=== PATIENT | male | born 1950 | race Caucasian/White ===

== ENCOUNTER 2017-12-09 06:03 | Outpatient (CLI) | payer MEDICAID ==
[~2017-12-09] VITALS: Ht 180.3 cm; Wt 84.1 kg
[2017-12-09] VITALS (9 sets, daily range): BP systolic 145–165; BP diastolic 72–82; Ht 180.3 cm; Wt 84.1 kg
--- NOTE | ~2017-12-09 | HEMODYNAMI ---
PATIENT:ALO DICKEY MEDICAL RECORD: [id number] : 50 LOCATION:D[id number] ADMISSION DATE: 12/09/17 Generatedon:12/09/201710:53 Patient name: ALO DICKEY Patient #: [id number] SSN: : 1 1950 Date of study: 12/09/2017 Page: Of Hemodynamic Procedure Report Patient Data Patient Demographics Procedure consent was obtained First Name: ALO Gender: Male Last Name: KELI : 1950 Middle Initial: M Age: 67 year(s) Patient #: [id number] Race: Unknown Additional ID: [id number] Contact details [address]: [address] [place] [address] State: [place] City: [place] Zip code: [address] Admission Admission Data Admission Date: 12/09/2017 Admission Time: 6:03 Procedure Procedure Types Cath Procedure Peripheral Cath Diagnostic Procedure Miscellaneous Procedure Description Procedure Date Procedure Date: 12/09/2017 Procedure Start Time: 8:45 Procedure Staff Name Function Florentino Shah RT Monitor Archana Shepard RT Scrub Araceli Antonio RN Nurse Zheng Gonzalez MD Performing Physician Procedure Data Cath Procedure Fluoroscopy Diagnostic fluoroscopy Total fluoroscopy Time: time: 26.6 min 26.6 min Diagnostic fluoroscopy Total fluoroscopy dose: dose: 1808 mGy 1808 mGy Contrast Material Contrast Material Type Amount (ml) Isovue 300 120 Entry Location Entry Primary Successful Side Size Upsize Upsize Entry Closure Succes sful Closure Location (Fr) 1 (Fr) 2 (Fr) Remarks Device Remarks Femoral Right 5 Fr vein Diagnostic catheters Device Type Used For End Catheter Placement Angiodynamics SOS OMNI 2 Procedure NON B 5FR 65CM catheter ([id number]) Procedure Medications Medication Administration Route Dosage Versed I.V. 1 mg Fentanyl I.V. 50 mcg Versed I.V. 1 mg Fentanyl I.V. 50 mcg Versed I.V. 1 mg Fentanyl I.V. 50 mcg Hemodynamics Rest Heart Rate: 107 (bpm) Snapshots Pre Cath Intra NCS Post Cath Vital Signs Time Heart Resp SPO2 etCO2 NIBP (mmHg) Rhythm Pain Sedation Rate (ipm) (%) (mmHg) Status Level (bpm) 8:29:28 107 3 96 0 Measuring NSR 0 (11) 10(A) , No pain 8:30:52 109 19 97 0 Time NSR 0 (11) 10(A) Exceeded , No pain 8:35:17 105 5 98 25.7 174/103(131) NSR 0 (11) 10(A) , No pain 8:39:43 102 14 98 25.7 167/96(133) NSR 0 (11) 10(A) , No pain 8:44:09 105 7 99 26.4 162/94(123) NSR 0 (11) 10(A) , No pain 8:48:33 104 6 99 24.2 164/97(125) NSR 0 (11) 10(A) , No pain 8:52:51 102 12 98 26.4 160/94(109) NSR 0 (11) 10(A) , No pain 8:57:09 104 15 97 24.9 143/90(115) NSR 0 (11) 10(A) , No pain 9:01:25 100 12 98 28.7 158/96(121) NSR 0 (11) 10(A) , No pain 9:05:40 95 13 96 20 138/88(113) NSR 0 (11) 10(A) , No pain 9:09:51 97 11 97 22 138/88(107) NSR 0 (11) 10(A) , No pain 9:14:10 94 13 99 27 140/80(113) NSR 0 (11) 10(A) , No pain 9:18:19 92 12 99 27.2 126/79(99) NSR 0 (11) 10(A) , No pain 9:22:31 92 13 99 27.2 119/69(91) NSR 0 (11) 10(A) , No pain 9:26:41 90 12 99 25.7 137/83(105) NSR 0 (11) 10(A) , No pain 9:30:55 91 12 99 23.4 141/84(105) NSR 0 (11) 10(A) , No pain 9:35:13 91 14 100 14 143/80(102) NSR 0 (11) 10(A) , No pain 9:39:23 92 13 99 18 138/83(109) NSR 0 (11) 10(A) , No pain 9:43:35 91 15 100 20 143/89(112) NSR 0 (11) 10(A) , No pain 9:47:49 96 13 100 22 145/89(108) NSR 0 (11) 10(A) , No pain 9:52:03 96 13 99 22 139/86(109) NSR 0 (11) 10(A) , No pain 9:56:15 93 14 99 24 115/72(89) NSR 0 (11) 10(A) , No pain 10:00:27 95 14 99 25 127/70(92) NSR 0 (11) 10(A) , No pain 10:04:37 94 14 99 25.7 118/72(87) NSR 0 (11) 10(A) , No pain 10:08:49 93 14 99 28 125/75(89) NSR 0 (11) 10(A) , No pain 10:13:05 94 13 99 28.8 124/71(97) NSR 0 (11) 10(A) , No pain 10:17:17 92 14 99 29.5 125/78(93) NSR 0 (11) 10(A) , No pain 10:21:31 93 14 99 31 123/78(91) NSR 0 (11) 10(A) , No pain 10:25:40 93 13 99 31 128/73(97) NSR 0 (11) 10(A) , No pain 10:29:48 94 14 96 31 118/73(96) NSR 0 (11) 10(A) , No pain 10:33:56 95 14 97 28.7 114/74(87) NSR 0 (11) 10(A) , No pain 10:38:04 98 24 100 11.3 136/83(112) NSR 0 (11) 10(A) , No pain 10:43:03 100 9 Measuring NSR 0 (11) 10(A) , No pain 10:43:09 100 9 150/96(126) NSR 0 (11) 10(A) , No pain 10:47:27 97 0 164/94(112) NSR 0 (11) 10(A) , No pain 10:51:47 96 0 166/99(123) NSR 0 (11) 10(A) , No pain Medications Time Medication Route Dose Verified Delivered Reason Notes Effectivenes s by by 8:47:21 Versed I.V. 1 mg Zheng Araceli for Paco Gonzalez RN sedation 8:47:32 Fentanyl I.V. 50 Zheng Araceli for mcg PawelaPaco RN sedation 8:49:54 Versed I.V. 1 mg Zheng Araceli for Burda, Paco WADDELL sedation 8:50:02 Fentanyl I.V. 50 Zheng Araceli for mcg Pawela, Paco WADDELL sedation 9:00:29 Versed I.V. 1 mg Zheng Araceli for BurdPaco thacker RN sedation 9:00:38 Fentanyl I.V. 50 Zheng Araceli for mcg PawelaPaco RN sedation Procedure Log Time Note 8:10:26 Florentino Shah RT (R) (CV) sent for patient. Start room use. 8:10:40 Time tracking: Regular hours 8:10:44 Plan of Care:Hemodynamics will remain stable., Cardiac rhythm will remain stable., Comfort level will be maintained., Respiratory function will remain adequate., Patient/ family verbilizes understanding of procedure., Procedure tolerated without complication., Recovers from procedure without complications.. 8:10:51 Patient received from Outpatients to IR Alert and oriented. Tansferred to table in Supine position. 8:10:52 Correct patient and procedure confirmed by team. 8:10:54 Signed procedure consent form obtained from patient. 8:10:55 ECG and BP/O2 sat monitors applied to patient. 8:10:56 Full Disclosure recording started 8:10:57 - 8:11:00 H&P Date Dictated: 12/09/2017 Within 30 days and on chart.. 8:11:01 Pre-procedure instructions explained to patient. 8:11:01 Pre-op teaching completed and patient verbalized understanding. 8:11:03 Family in waiting room. 8:11:06 Patient NPO since Midnight. 8:11:11 Use device set IR Diagnostic 8:11:13 ACIST Syringe (01268) opened to sterile field. 8:11:13 ACIST Hand Control (87244) opened to sterile field. 8:11:14 ACIST Manifold (62727) opened to sterile field. 8:11:14 Bag Decanter (2002S) opened to sterile field. 8:11:14 Sterile Angiographic Pack opened to sterile field. 8:11:23 Is the patient allergic to Iodine/contrast media? Yes. 8:11:28 Is patient on blood thinner?No 8:11:30 Was the patient premedicated? Yes 8:11:31 Patient diabetic? No. 8:11:32 - 8:11:33 ----Pre-sedation anethsthesia assessment.---- 8:11:35 Previous problem with sedation/anesthesia? No ? 8:11:37 Snore? Yes 8:11:38 Sleep apnea? No 8:11:40 Deviated septum? No 8:11:41 Opens mouth fully? Yes 8:11:44 Sticks out tongue? Yes 8:11:46 Airway obstruction? No ? 8:11:52 Dentures? Yes in tight 8:11:59 Patient pain scale 0/10 no pain. 8:27:39 Vital chart was started 8:27:40 Baseline sample Acquired. 8:42:36 Sharps counted by scrub and verified by R.N. 8:42:36 Alarms reviewed by R. N. 8:42:44 Right groin area was prepped with chlora-prep and draped in sterile fashion 8:42:50 Right neck area was prepped with chlora-prep and draped in sterile fashion 8:42:59 IV patent on arrival in right forearm with 0.9% NaCl at [facility]. 8:43:58 Physician arrived 8:43:59 Physician arrived 8:43:59 --------ALL STOP TIME OUT------ 8:44:00 Final Timeout: patient, procedure, and site verified with staff and physician. All members of the team are in agreement. 8:44:03 Right neck site verified by team. 8:44:07 Right groin site verified by team. 8:44:13 Sedation plan: IV Moderate Sedation Medication:Versed, Fentanyl 8:45:14 Procedure started. 8:45:47 Local anesthetic to right femoral vein with Lidocaine 1% by Zheng Gonzalez MD.INITIAL ACCESS ONLY 8:47:21 Versed 1 mg I.V. was administered by Araceli Antonio RN; for sedation; 8:47:32 Fentanyl 50 mcg I.V. was administered by Araceli Antonio RN; for sedation ; 8:49:49 SHEATH 5FR [place] (QET726) opened to sterile field. 8:49:50 DOC .035 wire (Z85513) opened to sterile field. 8:49:51 Micropuncture VSI 4FR kit opened to sterile field. 8:49:51 TUBING Contrast Injection High Pressure (GIA007V) opened to sterile field. 8:49:54 Versed 1 mg I.V. was administered by Araceli Antonio RN; for sedation; 8:50:02 Fentanyl 50 mcg I.V. was administered by Araceli Antonio RN; for sedation ; 8:52:15 A 5 Fr sheath was inserted into the Right Femoral vein 8:53:46 GLIDE CATHETER 5FR COBRA 65cm (CG502) opened to sterile field. 8:55:25 TORQUE DEVICE PLASTIC .038 ( TD01) opened to sterile field. 8:55:25 GLIDE WIRE ANGLE 260cm (LC0187) opened to sterile field. 8:57:59 GLIDE CATHETER 5FR [place]O 2 100cm (CG511) opened to sterile field. 9:00:29 Versed 1 mg I.V. was administered by Araceli Antonio RN; for sedation; 9:00:38 Fentanyl 50 mcg I.V. was administered by Araceli Antonio RN; for sedation ; 9:00:56 A Angiodynamics SOS OMNI 2 NON B 5FR 65CM catheter ([id number]) was advanced over the wire and used for Procedure. 9:08:02 GLIDE CATHETER 5FR ANGLED 65cm (CG507) opened to sterile field. 9:11:01 HERE FOR TIVA 9:11:23 ARMSTRONG 180cm wire (I76404) opened to sterile field. 9:14:06 BENTSON 145cm wire (Z21913) opened to sterile field. 9:19:53 St Gerardo 9FR sheath opened to sterile field. 9:19:56 St Gerardo 10FR 23CM sheath opened to sterile field. 9:24:17 AMPLATZ Super stiff 180cm wire ([id number]) opened to sterile field. 10:17:36 12 MM AMPLATZER PLUG LOT#[id number] DEPLOYED 10:18:58 GLIDE CATHETER 5FR ANGLED 65cm (CG507) opened to sterile field. 10:25:52 Procedure ended.(Physican Out) 10:26:04 Fluoroscopy time 26.60 minutes. 10:26:09 Fluoroscopy dose: 1808 mGy 10:26:09 Flurop Dose total: 1808 10:26:12 Sharps counted by scrub and verified by R.N. 10:26:19 Insertion/operative site no bleeding no hematoma. 10:26:24 Post-op/insertion site Right Femoral vein dressed using a 4 x 4 and Tegaderm. 10:26:39 Post right femoral vein:stable 10:26:41 Post Procedure Pulses reassessed and unchanged 10:26:44 Post procedure instruction explained to patient.Patient verbalizes understanding. 10:26:46 Patient needs reinforcement of post procedure teaching. 10:26:57 Procedure and supply charges have been captured, reviewed, submitted an d are correct. 10:30:44 Contrast amount:Isovue 300 120ml. 10:52:57 Report given to Med/Surg. 10:53:01 Patient transfered to Med/Surg with Bed. 10:53:28 Vital chart was stopped Device Usage Item Name Manufacture Quantity Catalog Hospital Part Current Minim al Lot# / Number Charge Number Stock Stock Serial# Code ACIST Syringe Acist Medical 1 96230 435755 853477 120437 20 (23260) TalkBin ACIST Hand [employer]ist Medical 1 61853 834343 559645 071621 5 Control Systems Inc (33972) ACIST Acist Medical 1 73888 831744 767518 223084 5 Manifold Systems Inc (65658) Bag Decanter Microtek 1 2001S 928848 76529 632300 5 (2001S) Medical Inc. Sterile Cardinal 1 [id number] 290972 180798 5 Angiographic Health Pack SHEATH 5FR Terumo 1 GFH548 916172 405679 591985 40 [place] (LRA138) DOC .035 wire [facility] 1 Z32447 300180 405610 5 1724517 (T98561) Micropuncture VSI VASCULAR 1 7266V 951851 246092 5 VSI 4FR kit SOLUTIONS TUBING [facility] 1 [id number] 857167 460567 694192 5 Contrast Injection High Pressure (ZJA010S) GLIDE Terumo 1 CG502 738947 770647 5 CATHETER 5FR COBRA 65cm (CG502) TORQUE DEVICE [place] 1 TD01 540957 303632 129152 5 PLASTIC .038 Scientific ( TD01) GLIDE WIRE Terumo 1 US6818 097571 593826 747244 5 ANGLE 260cm (GL1043) GLIDE Terumo 1 CG511 350612 851178 5 CATHETER 5FR PIZ[place]O 2 100cm (CG511) Angiodynamics Angiodynamics 1 [id number] 280322 74767 710346 5 SOS OMNI 2 NON B 5FR 65CM catheter (80278967) GLIDE Terumo 2 CG507 335357 158769 5 CATHETER 5FR ANGLED 65cm (CG507) ARMSTRONG 180cm [place] [facility] 1 T91009 218362 544071 5 3691980 wire (D03187) BENTSON 145cm [employer] [facility] 1 B34194 895376 398293 5 9439416 wire (T41536) [facility] Gerardo 9FR [facility] 1 765242 354043 695001 [id number] Ger[facility] [address] [facility] 1 214530 875360 831058 5 23CM sheath AMPLATZ Super [place] 1 [id number] 073217 710267 5 [id number] stiff 180cm Scientific wire ([id number]) Signature Audit [place] Stage Time Signature Unsigned Intra-Procedure 12/09/2017 Florentino 10:53:25 AM [place] RT (R) (CV) Signatures Monitor : Florentino Signature : [place] RT Date : Time : [facility] [address] [facility] [place] [address]
[~2017-12-09 06:03] MED LIST: MULTIPLE VITAMI1 TA1 PO
[2017-12-09] MEDS ORDERED: PREDNISONE10 MG PO (07:11)
[2017-12-09] MEDS ORDERED: BANOPHEN25 MG PO (07:12)
[2017-12-09 07:17] LABS: HEMATOCRIT 32.1 % (42.0-54.0); HEMOGLOBIN 10.2 g/dL (13.5-17.5); MCHC 31.8 g/dL (31.0-37.0); MCV 81.9 fL (80.0-100.0); MEAN PLATELET VOLUME 11.8 fL (7.4-10.4); RBC 3.92 10x6/uL (4.20-6.10); RDW 17.8 % (11.5-14.5); WBC 2.1 10x3/uL (4.8-10.8)
[2017-12-09 07:19] LABS: PLATELET COUNT 102 10x3/uL (130-400)
[2017-12-09 07:31] LABS: ANION GAP 16.9 mmol/L (8-16); CALCIUM 8.8 mg/dL (8.5-10.1); CARBON DIOXIDE 19.2 mmol/L (21.0-32.0); CREATININE - SERUM 1.1 mg/dL (0.6-1.3); POTASSIUM - SERUM 4.1 mmol/L (3.5-5.1)
[2017-12-09 07:33] LABS: APTT 33.7 SECONDS (22.8-39.4); INR 1.3 (0.85-1.17); PROTIME 15.7 SECONDS (11.6-15.0)
[2017-12-09 08:17] LABS: LYMPHOCYTES 10 % (15-50); MONOCYTES 2 % (2-11); NEUTROPHILS 88 % (40-80); PLATELET ESTIMATE NORMAL
[2017-12-09 10:45] LABS: ALBUMIN 3.1 g/dL (3.4-5.0); BILIRUBIN - DIRECT 0.22 mg/dL (0.00-0.30); BILIRUBIN - INDIRECT 0.62 mg/dL (0.00-1.00); BILIRUBIN - TOTAL 0.84 mg/dL (0.2-1.3); PROTEIN - SERUM 7.4 g/dL (6.4-8.2)
[2017-12-10 00:44] VITALS: BP 120/64
[2017-12-10 05:34] LABS: APTT 32.9 SECONDS (22.8-39.4); INR 1.34 (0.85-1.17); PROTIME 16.1 SECONDS (11.6-15.0)
[2017-12-10 05:42] LABS: BASOPHILS 0.1 % (0-2); EOSINOPHILS 0.1 % (0-7); HEMOGLOBIN 9.1 g/dL (13.5-17.5); IMMATURE GRANULOCYTES 0.2 % (0-5); LYMPHOCYTES 12.9 % (15-50); MCH 25.8 pg (26.0-34.0); MCHC 31.4 g/dL (31.0-37.0); MCV 82.2 fL (80.0-100.0); MEAN PLATELET VOLUME 11.7 fL (7.4-10.4); MONOCYTES 10.8 % (2-11); NEUTROPHILS 75.9 % (40-80); PLATELET COUNT 93 10x3/uL (130-400); RBC 3.53 10x6/uL (4.20-6.10)
[2017-12-10 05:47] LABS: ALBUMIN 2.4 g/dL (3.4-5.0); ALKALINE PHOSPHATASE 80 U/L (46-116); ALT (SGPT) 51 U/L (10-68); BILIRUBIN - TOTAL 0.73 mg/dL (0.2-1.3); CALCIUM 8.1 mg/dL (8.5-10.1); CARBON DIOXIDE 22.6 mmol/L (21.0-32.0); CHLORIDE - SERUM 108 mmol/L (98-107); POTASSIUM - SERUM 3.8 mmol/L (3.5-5.1); PROTEIN - SERUM 6.1 g/dL (6.4-8.2); SODIUM 141 mmol/L (136-145); eGFR NON AFRICAN AMERICAN 79 mL/min (90-120)
[2017-12-10 05:48] LABS: WBC 8.4 10x3/uL (4.8-10.8)
[2017-12-10 05:49] LABS: CALC OSMOLALITY 281 mosm/kg (275-300); GLUCOSE 103 mg/dL (74-106); UREA NITROGEN 15 mg/dL (7-18)
[2017-12-10 06:49] VITALS: BP 115/70
[2017-12-10 08:45] VITALS: BP 147/83
[2017-12-10 12:18] VITALS: BP 157/82
== END 2017-12-10 14:24 | disposition home or self-care (01) ==
LOC: D.OPS 06:03 → D.MS 06:03 → D.RAD 08:00 → D.OPS 08:00 → D.MS 10:49 → D.OPS 12-10 14:24
PROVIDERS: General Practice
DX: I86.4 Gastric varices (principal); K74.69 Other cirrhosis of liver; Z88.8 Allergy status to other drugs, medicaments and biological substances; Z88.0 Allergy status to penicillin; Z91.013 Allergy to seafood; Z01.812 Encounter for preprocedural laboratory examination

== ENCOUNTER → 2017-12-20 13:02 | Outpatient (CLI) | payer MEDICAID ==
[2017-12-09 17:32] VITALS: BMI 25.8
[~2017-12-20 13:02] MED LIST changes: +BANOPHEN25 MG PO; +PREDNISONE10 MG PO
== END | disposition home or self-care (01) ==
LOC: D.CT 13:02
DX: Z98.890 Other specified postprocedural states (principal)

== ENCOUNTER → 2017-12-24 11:22 | Outpatient (CLI) | payer MEDICAID ==
[2017-12-09 17:32] VITALS: BMI 25.8
== END | disposition home or self-care (01) ==
LOC: D.CT 08:30
DX: Z98.890 Other specified postprocedural states (principal)

== ENCOUNTER → 2021-04-06 15:21 | Outpatient (CLI) | payer MEDICAID ==
[2017-12-09 17:32] VITALS: BMI 25.8
[2021-04-06 15:38] LABS: BASOPHILS 0.5 % (0-2); EOSINOPHILS 2.3 % (0-7); HEMATOCRIT 31.6 % (42.0-54.0); HEMOGLOBIN 10.8 g/dL (13.5-17.5); LYMPHOCYTES 7.6 % (15-50); MCH 37.1 pg (26.0-34.0); MCHC 34.2 g/dL (31.0-37.0); MCV 108.6 fL (80.0-100.0); MONOCYTES 11.6 % (2-11); NEUTROPHIL ABS# 8.07 10x3/uL (1.78-5.38); RBC 2.91 10x6/uL (4.20-6.10); RDW 16.7 % (11.5-14.5); WBC 10.5 10x3/uL (4.8-10.8)
[2021-04-06 15:43] LABS: PLATELET COUNT 147 10x3/uL (130-400)
[2021-04-06 16:08] LABS: ANION GAP 13.8 mmol/L (8-16); BILIRUBIN - TOTAL 3.11 mg/dL (0.2-1.3); CALCIUM 7.7 mg/dL (8.5-10.1); CREATININE - SERUM 1.6 mg/dL (0.6-1.3); POTASSIUM - SERUM 3.8 mmol/L (3.5-5.1); PROTEIN - SERUM 6.2 g/dL (6.4-8.2)
== END | disposition home or self-care (01) ==
LOC: D.LABREF 15:21
PROVIDERS: ATTEND Family Medicine
DX: Z01.812 Encounter for preprocedural laboratory examination (principal)

== ENCOUNTER → 2021-04-20 16:44 | Outpatient (CLI) | payer MEDICAID ==
[2017-12-09 17:32] VITALS: BMI 25.8
[2021-04-20 18:41] LABS: BILIRUBIN NEGATIVE (NEGATIVE); KETONE NEGATIVE (NEGATIVE); NITRITE POSITIVE (NEGATIVE); UROBILINOGEN NORMAL mg/dL (< 2)
[2021-04-20 18:42] LABS: BACTERIA MANY HPF (NONE SEEN); SQUAMOUS EPITHELIAL NONE SEEN HPF (0-4); WHITE CELLS - URINE 0-5 HPF (0-1)
== END | disposition home or self-care (01) ==
LOC: D.LABREF 16:44
PROVIDERS: ATTEND Family Medicine
DX: R41.82 Altered mental status, unspecified (principal)